=== PATIENT | male | born 1990 | race Two or more races ===

== ENCOUNTER 2021-09-13 18:28 | Emergency (ER) | payer OTHER ==
[~2021-09-13] VITALS: Ht 172.7 cm; Wt 68.0 kg
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
--- NOTE | 2021-09-13 18:38 | NUR ---
URINE SPECIMEN COLLECTED AND SENT TO LAB.
--- NOTE | 2021-09-13 18:48 | NUR ---
CLAUDETTE ZAPATA AT BEDSIDE FOR EVAL.
[2021-09-13] MEDS ORDERED: IV NS 0.9% 500 ML BAG IV ONE (19:00)
[2021-09-13 20:27] LABS: BASOPHILS # (AUTO) 0.1 K/uL (0.0-0.2); BASOPHILS % (AUTO) 1.4 % (0.0-2.0); EOSINOPHILS % (AUTO) 1.4 % (0.0-6.0); HEMATOCRIT 29 % (39-51); HEMOGLOBIN 8.9 g/dL (13.5-17.5); LYMPHOCYTES % (AUTO) 19.5 % (20.0-44.0); MEAN CORPUSCULAR HGB CONC 31 g/dl (31.0-36.0); MEAN CORPUSCULAR VOLUME 76 fL (80-96); MONOCYTES # (AUTO) 0.3 K/uL (0.1-1.30); MONOCYTES % (AUTO) 6.2 % (2.0-12.0); NEUTROPHILS # (AUTO) 3.8 K/uL (1.8-8.9); NEUTROPHILS % (AUTO) 71.5 % (43.0-81.0); PLATELET COUNT (AUTO) 226 K/uL (150-450); RED BLOOD CELL COUNT(AUTO) 3.79 MIL/uL (4.5-6.0); WHITE BLOOD COUNT (AUTO) 5.4 K/uL (4.3-11.0)
[2021-09-13 20:46] LABS: BILIRUBIN,URINE NEGATIVE (NEGATIVE); COLOR,URINE YELLOW (YELLOW); LEUKOCYTE ESTERASE ,URINE NEGATIVE (NEGATIVE); NITRITE, URINE NEGATIVE (NEGATIVE); PROTEIN,URINE 30 mg/dl (NEGATIVE); UGLUCOSE NEGATIVE (NEGATIVE)
[2021-09-13 21:04] LABS: BACTERIA,URINE Few /HPF (None Seen); RBC,URINE 0-2 /HPF (0-2); SQUAMOUS EPITHELIAL CELL,UR Few /HPF (None Seen); WBC,URINE 0-2 /HPF (0-3)
[2021-09-13 23:25] LABS: CALCIUM, SERUM 8.4 mg/dL (8.5-10.1); POTASSIUM 3.7 mmol/L (3.5-5.1)
[2021-09-13 23:31] LABS: ALBUMIN 3.6 g/dL (3.4-5.0); TOTAL PROTEIN, SERUM 7.3 g/dL (6.4-8.2)
[2021-09-14 04:23] LABS: BILIRUBIN,TOTAL 0.2 mg/dL (0.2-1.0)
[2021-09-14 05:03] VITALS: BP 123/86
--- NOTE | 2021-09-14 05:03 | NUR ---
Patient discharged to home in stable condition. Written and verbal after care instructions given. Patient verbalizes understanding of instruction.
[2021-09-14 05:47] LABS: BILIRUBIN,DIRECT 0.1 mg/dL (0.0-0.2)
== END 2021-09-14 05:15 | disposition home or self-care (01) ==
LOC: ER 18:32
DX: T51.91XA Toxic effect of unspecified alcohol, accidental (unintentional), initial encounter (principal); R94.31 Abnormal electrocardiogram [ECG] [EKG]; Y92.89 Other specified places as the place of occurrence of the external cause
CPT/HCPCS: 36415; 80048; 80076; 80143; 80307; 80320; 81001; 85025; 93005; 96360; 99285; J7030; G0480